=== PATIENT | female | born 2000 | race Caucasian/White ===

== ENCOUNTER 2019-01-27 05:19 | Day surgery (SDC) | payer BC ==
[2019-01-24 08:19] VITALS: BP 112/75
[2019-01-24 08:53] LABS: BASOPHILS # (AUTO) 0.06 x10^3/uL (0-0.3); BASOPHILS % (AUTO) 1 % (0-1); EOSINOPHILS % (AUTO) 0 % (1-7); LYMPHOCYTES # (AUTO) 1.96 x10^3/uL (1-6.1); LYMPHOCYTES % (AUTO) 24 % (22-44); MD NO; MEAN CORPUSCULAR HGB CONC 33.5 g/dL (32.4-35.8); MEAN CORPUSCULAR VOLUME 89.5 fL (80-100); MEAN PLATELET VOLUME 9.4 fL (7.4-10.4); MONOCYTES # (AUTO) 0.86 x10^3/uL (0-1.4); MONOCYTES % (AUTO) 11 % (2-9); NEUTROPHILS # (AUTO) 5.16 x10^3/uL (1.8-8.0); NEUTROPHILS % (AUTO) 64 % (42-75); PLATELET COUNT 199 x10^3/uL (130-400); RED BLOOD COUNT 4.75 x10^6/uL (3.82-5.3); RED CELL DISTRIBUTION WIDTH 13.3 % (9.6-15.2)
[2019-01-24 08:58] LABS: MICROSCOPIC NOT IND
[2019-01-24 09:02] LABS: CULTURE INDICATED? NO
[~2019-01-27] VITALS: Ht 167.6 cm; Wt 74.0 kg
[~2019-01-27 05:19] MED LIST: DOCU100T3 PO; IBUP-1222 PO; ONDA8TAB16 SL; OXYC-302 PO
[2019-01-27] MEDS ORDERED: LACTATED RINGERS 1,000 ML IV SCH (05:53)
[2019-01-27] MEDS ORDERED: ACETAMINOPHEN 500 MG TABLET PO ONE (06:00)
[2019-01-27] MEDS ORDERED: GABAPENTIN 300 MG CAPSULE PO ONE (06:00)
[2019-01-27 06:03] VITALS: BP 112/75
[2019-01-27] MEDS ORDERED: MIDAZOLAM 1 MG/ML, 2ML ONE (06:25)
[2019-01-27] MEDS ORDERED: FENTANYL PF 250 MCG/5ML ONE (06:25)
[2019-01-27] MEDS ORDERED: BUPIVACAINE/PF 0.25% ONE (06:36)
[2019-01-27] MEDS ORDERED: EPINEPHRINE 1 MG/ML, 1ML ONE (06:36)
[2019-01-27] MEDS ORDERED: LABETALOL 5MG/ML, 20ML IV PRN (07:00)
[2019-01-27] MEDS ORDERED: MEPERIDINE/PF 25MG/0.5ML IVPush PRN (07:00)
[2019-01-27] MEDS ORDERED: PROMETHAZINE 25 MG/ML, 1ML IV PRN (07:00)
[2019-01-27] MEDS ORDERED: HALOPERIDOL 5 MG/ML IV PRN (07:00)
[2019-01-27] MEDS ORDERED: OXYcodone 5 MG/5 ML ORAL.SOL UDC PO PRN (07:00)
[2019-01-27] MEDS ORDERED: PROMETHAZINE 25 MG SUPP PR PRN (07:00)
[2019-01-27] MEDS ORDERED: ONDANSETRON 2MG/ML, 2ML IV PRN (07:00)
[2019-01-27] MEDS ORDERED: HYDROmorphone 2 MG/ML, 1ML IVPush PRN (07:00)
[2019-01-27] MEDS ORDERED: ONDANSETRON ODT 8 MG PO PRN (07:00)
[2019-01-27] MEDS ORDERED: PROMETHAZINE 12.5 MG SUPP PR PRN (07:00)
[2019-01-27] MEDS ORDERED: PROMETHAZINE 25 MG/ML, 1ML IM PRN ×2 (07:00)
[2019-01-27] MEDS ORDERED: MORPHINE SULFATE 4 MG/ML, 1ML IVPush PRN (07:00)
[2019-01-27] MEDS ORDERED: hydrALAzine 20 MG/ML, 1ML IV PRN (07:00)
[2019-01-27] MEDS ORDERED: DEXAMETHASONE 4 MG/ML, 5ML ONE (07:07)
[2019-01-27] MEDS ORDERED: BUPIVACAINE/PF 0.25% INFIL ONE (07:36)
[2019-01-27] MEDS ORDERED: NEOSTIGMINE 1 MG/ML, 10ML ONE (07:37)
[2019-01-27] MEDS ORDERED: GLYCOPYRROLATE 0.2MG/1ML, 5ML ONE (07:37)
[2019-01-27] MEDS ORDERED: CEFAZOLIN 1,000 MG ONE (07:37)
[2019-01-27] MEDS ORDERED: PROPOFOL 10 MG/ML, 20ML ONE (07:37)
[2019-01-27] MEDS ORDERED: ONDANSETRON 2MG/ML, 2ML ONE (07:37)
[2019-01-27] MEDS ORDERED: ROCURONIUM 10MG/ML,5ML ONE (07:37)
[2019-01-27] MEDS ORDERED: OXYcodone 5 MG/5 ML ORAL.SOL UDC ONE (08:13)
[2019-01-27] MEDS ORDERED: FENTANYL PF 100 MCG/2ML ONE (08:13)
[2019-01-27] MEDS: FENTANYL PF 100 MCG/2ML IV PRN ×2 (08:15→08:22)
[2019-01-27] MEDS ORDERED: KETOROLAC 30 MG/1 ML ONE (08:20)
[2019-01-27] MEDS ORDERED: KETOROLAC 30 MG/1 ML IVPush PRN (08:30)
[2019-01-27] MEDS ORDERED: HYDROmorphone 1 MG/ML, 1ML ONE (08:40)
== END 2019-01-27 10:45 | disposition home or self-care (01) ==
LOC: OUT 05:19
PROVIDERS: ATTEND Obstetrics & Gynecology
DX: N83.8 Other noninflammatory disorders of ovary, fallopian tube and broad ligament (principal); Z98.890 Other specified postprocedural states; Z79.899 Other long term (current) drug therapy; Z87.891 Personal history of nicotine dependence
CPT/HCPCS: 36415; 58662; 81003; 84702; 85025; 88304; J0171; J0690; J1100; J1170; J1885; J2250; J2405; J2704; J2710; J3010; J3490; J7120

== ENCOUNTER 2019-01-30 21:31 | Emergency (ER) | payer BC ==
[~2019-01-30] VITALS: Ht 167.6 cm; Wt 73.6 kg
[2019-01-30 21:34] VITALS: BP 129/89
[2019-01-30] MEDS ORDERED: LIDOCAINE-MPF 1%, 5ML ONE (21:48)
[2019-01-30] MEDS ORDERED: LIDOCAINE-MPF 1%, 5ML INFIL ONE (22:00)
[2019-01-30] MEDS ORDERED: BACITRACIN ZINC OINT 500U/GM, 0.9 GM ONE (22:04)
--- NOTE | 2019-01-30 22:08 | NUR ---
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 wound cleansed by EDT, sutured by GIORGIO Malone. Wound dressed by EDT. pt awaiting dc instructions at this time. Addendum: 01/30/19 at 2235 by ROSALBA pt presents to ED with c/o lac to right palm, accidentally cut self while working in kitchen this pm. wound cleansed by EDT, sutured by GIORGIO Malone. Wound dressed by EDT. pt awaiting dc instructions at this time.
--- NOTE | 2019-01-30 22:46 | NUR ---
TASK RN: Patient/Caregiver given discharge instructions and they have confirmed that they understand the instructions. Patient ambulatory with steady gait.
== END 2019-01-30 22:48 | disposition home or self-care (01) ==
LOC: ED 22:13
DX: S61.412A Laceration without foreign body of left hand, initial encounter (principal); W26.0XXA Contact with knife, initial encounter; Y93.89 Activity, other specified; Y92.098 Other place in other non-institutional residence as the place of occurrence of the external cause; Y99.8 Other external cause status
CPT/HCPCS: 12041; 99284

== ENCOUNTER 2019-02-06 16:18 | Emergency (ER) | payer BC ==
[~2019-02-06] VITALS: Ht 167.6 cm; Wt 72.9 kg
[2019-02-06 16:32] VITALS: BP 133/87
== END 2019-02-06 17:10 | disposition home or self-care (01) ==
LOC: ED 17:04
DX: S61.412D Laceration without foreign body of left hand, subsequent encounter (principal); X58.XXXD Exposure to other specified factors, subsequent encounter
CPT/HCPCS: 99281